=== PATIENT | female | born 1950 | race Caucasian/White ===

== ENCOUNTER → 2020-02-27 | Outpatient (CLI) | payer MEDICARE, BC | LOC: GMAM 14:21 | PROVIDERS: ATTEND Family Medicine | DX: E11.8 Type 2 diabetes mellitus with unspecified complications (principal) ==

== ENCOUNTER → 2020-03-04 | Outpatient (CLI) | payer MEDICARE, BC ==
--- NOTE | 2020-03-04 12:45 | MRI ---
EXAM DESCRIPTION: MRI left elbow CLINICAL HISTORY: Fall injury one week ago. Elbow pain COMPARISON: None. TECHNIQUE: Multiplanar, multisequence MR images of the left elbow FINDINGS: Mildly comminuted fracture of the radial head. Transversely oriented fracture across the radial neck with epiphyseal/intra-articular extension along the medial radial head. No subchondral cortical offset. No significant impaction at the articular surface. Greatest degree of metaphyseal/radial neck overlap 1-2 mm No fracture of the humerus or ulna Biceps, brachialis, and triceps tendons are normal Chronic common extensor tendinosis without tear. Radial collateral and lateral ulnar collateral ligaments are intact. Thin posterior lateral plica. Common flexor tendon intact. Ulnar collateral ligament is normal Moderate joint effusion with mild synovitis. No intra-articular body IMPRESSION: Fracture of the radial head and neck without impaction/cortical offset Chronic common extensor tendinosis Electronically signed by: Facundo Estevez MD 03/04/2020 12:43 PM CDT
== END ==
LOC: MRI 09:00
PROVIDERS: ATTEND Family Medicine
DX: S52.125A Nondisplaced fracture of head of left radius, initial encounter for closed fracture (principal); M77.8 Other enthesopathies, not elsewhere classified

== ENCOUNTER → 2020-03-05 | Outpatient (CLI) | payer MEDICARE, BC ==
--- NOTE | 2020-03-05 16:52 | MAM ---
EXAM DESCRIPTION: 3D Screening BILATERAL : Digital Mammography. CLINICAL HISTORY: 69 years Female ANNUAL SCREENING . No complaints. No personal or family history of breast cancer. Menarche age 15. Childbirth age 23. Postmenopausal. Age unknown. No HRT. Prior benign left breast biopsy. Lifetime risk of developing breast cancer (Tyrer-Cuzick model)(%): 5.2. COMPARISON: Spine study at this facility. No prior reports available. TECHNIQUE: Bilateral CC and MLO projection full-field images, digital tomosynthesis mammographic technique. Bilateral digital 2-D full-field MLO images. CAD available for 2-D images. FINDINGS: The breast parenchymal density pattern is: Scattered areas of fibroglandular density. No skin thickening or nipple retraction. Right axillary lymph nodes. Bilateral intramammary lymph nodes. Bilateral coarse microcalcifications. No new focal, stellate mass or density, focal asymmetry , and no suspicious microcalcifications bilaterally IMPRESSION: Benign exam. BIRAD CATEGORY: 2 BENIGN FINDINGS. RECOMMENDATIONS: FOLLOW UP: Routine digital bilateral mammographic screening, one year interval from February 2020. Written communication explaining the IMPRESSION and follow-up, will be mailed to the patient and referring health care provider. According to the [employer], yearly mammograms are recommended starting at age 40 and continuing as long as a woman is in good health. Any breast change noted on a breast self-exam should be reported promptly to the patient's healthcare provider. Breast MRI is recommended for women with an approximately 20-25% or greater lifetime risk of breast cancer, including women with a strong family history of breast or ovarian cancer and women who have been treated for Hodgkin's disease. A negative mammographic report should not delay tissue diagnosis in patients with significant clinical history or physical findings. Extremely dense breast tissue limits the sensitivity of digital mammography. Electronically signed by: Carlos Ruiz MD 03/05/2020 4:51 PM CDT
== END ==
LOC: MAMMO 10:30
PROVIDERS: ATTEND Family Medicine
DX: Z12.31 Encounter for screening mammogram for malignant neoplasm of breast (principal)

== ENCOUNTER → 2020-04-12 | Outpatient (CLI) | payer MEDICARE, BC ==
--- NOTE | 2020-04-12 09:46 | RAD ---
EXAM DESCRIPTION: Left elbow, 2 radiographs CLINICAL HISTORY: CLOSED FX OF HEAD OF RADIUS FINDINGS/ IMPRESSION: Comparison to previous MRI dated 03/04/2020 Fracture of the radial neck. Impaction overlap estimated at 5 mm. No fracture of the subchondral cortex of the radial head. No fracture of the humerus or ulna. Electronically signed by: Facundo Estevez MD 04/12/2020 9:44 AM CDT
== END ==
LOC: RAD 07:21
PROVIDERS: ATTEND Orthopaedic Surgery
DX: S52.122D Displaced fracture of head of left radius, subsequent encounter for closed fracture with routine healing (principal)

== ENCOUNTER → 2020-04-23 | Outpatient (CLI) | payer MEDICARE, BC | LOC: GMAM 04-22 14:38 | PROVIDERS: ATTEND Family Medicine | DX: Z01.818 Encounter for other preprocedural examination (principal); D64.9 Anemia, unspecified ==

== ENCOUNTER → 2020-07-18 | Outpatient (CLI) | payer MEDICARE, BC | LOC: GMAM 14:20 | PROVIDERS: ATTEND Family Medicine | DX: R71.8 Other abnormality of red blood cells (principal); D64.9 Anemia, unspecified ==